=== PATIENT | male | born 1990 | race Two or more races ===

== ENCOUNTER → 2022-03-17 10:28 | Outpatient (BNVA) | payer MEDICAID, SELFPAY | PROVIDERS: PCP Internal Medicine; Visit Provider Nurse Practitioner Family | DX: R56.9 Unspecified convulsions (principal) | CPT/HCPCS: 99202 ==

== ENCOUNTER 2022-05-05 08:55 | Outpatient (REF) | payer MEDICAID, SELFPAY ==
--- NOTE | ~2022-05-05 | MR_ITS ---
EXAMINATION: MR BRAIN WITHOUT CONTRAST CLINICAL INFORMATION: Unspecified convulsions. COMPARISON: None available. TECHNIQUE: Multiplanar, multisequence imaging of the brain was performed without intravenous contrast. FINDINGS: There is no acute infarction, mass, hemorrhage, or extra-axial collection. 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 There is no hydrocephalus. The brain parenchyma signal is essentially normal. The hippocampi demonstrate normal size, signal, and morphology, and appear symmetric. There is no evidence of ovalles matter heterotopia. The flow voids of the major intracranial arteries appear intact. The bones and extracranial soft tissues are unremarkable. There is mild paranasal sinus mucosal thickening without fluid levels. MR/MR head/brain wo con IMPRESSION: No acute infarct, mass lesion, intracranial hemorrhage, or evidence of hydrocephalus. No epileptogenic nidus identified.
== END 2022-05-05 08:56 | disposition home or self-care (01) ==
LOC: HO.MRI 08:55
PROVIDERS: Visit Provider Nurse Practitioner Family
DX: R56.9 Unspecified convulsions (principal)
CPT/HCPCS: 70551